=== PATIENT | female | born 1940 | race Caucasian/White ===

== ENCOUNTER → 2016-10-15 | Outpatient (REF) | LOC: ZLAB.WCH 16:09 | DX: Z01.89 Encounter for other specified special examinations (principal) ==

== ENCOUNTER → 2017-07-11 | Outpatient (REF) ==
[2017-07-11 15:05] LABS: THYROID STIMULATING HORMONE 4.96 uIU/mL (0.465-4.680)
== END ==
LOC: ZLAB.WCH 14:20
PROVIDERS: Nurse Practitioner Family
DX: Z01.89 Encounter for other specified special examinations (principal)

== ENCOUNTER → 2018-07-10 | Outpatient (REF) | LOC: ZLAB.WCH 15:51 | DX: Z01.89 Encounter for other specified special examinations (principal) ==

== ENCOUNTER → 2018-10-11 | Outpatient (REF) ==
[2018-10-11 16:59] LABS: THYROID STIMULATING HORMONE 4.75 uIU/mL (0.465-4.680)
== END ==
LOC: ZLAB.WCH 15:55
PROVIDERS: Internal Medicine
DX: Z01.89 Encounter for other specified special examinations (principal)

== ENCOUNTER → 2019-01-22 | Outpatient (REF) | LOC: ZLAB.WCH 17:33 | DX: Z01.89 Encounter for other specified special examinations (principal) ==

== ENCOUNTER 2024-02-03 08:01 | Outpatient (CLI) | payer MEDICARE, BC ==
[2024-02-03] VITALS (14 sets, daily range): BP systolic 131–158; BP diastolic 48–97; PULSE 61–74; TEMP 97.2
[~2024-02-03] VITALS: Ht 154.9 cm; Wt 51.0 kg
[~2024-02-03 08:01] MED LIST: ASPIRIN E.C. 8181 MG PO; CALCIUM 600MG+D1 TAB PO; HCTZ 25MG TAB25 MG PO; MUCINEX DM 30 M1 TE1; VITAMIN B12 681 TAB PO; VITAMINC1000TA PO; ZOLOFT 25MG25 MG PO
[2024-02-03] MEDS ORDERED: LIPITOR 40MG TA40 MG PO (08:16)
[2024-02-03] MEDS ORDERED: DITROPAN 5MG TAB5 MG PO (08:18)
[2024-02-03] MEDS ORDERED: fentaNYL 50 MCG/ML 2 ML VIAL IV PRN (10:30)
[2024-02-03] MEDS ORDERED: Midazolam 2 MG/2 ML VIAL IV PRN (10:30)
--- NOTE | 2024-02-03 13:29 | NUR ---
PT TOLERATED RECOVERY PERIOD WELL. TWO CHEST XRAYS WERE OBTAINED PER DOCTOR'S ORDERS AND PT REMAINED FREE FROM SIGNS AND SYMPTOMS OF PNEUMOTHORAX. PT ASSISTED TO MAIN LOBBY VIA WHEELCHAIR AND IV DISCONTINUED. PT VERBALIZED UNDERSTANDING OF DISCHARGE INSTRUCTIONS
== END 2024-02-03 13:15 | disposition home or self-care (01) ==
LOC: COL.RAD 08:01
DX: R91.8 Other nonspecific abnormal finding of lung field (principal)
CPT/HCPCS: 32106